=== PATIENT | female | born 1950 | race Caucasian/White ===

== ENCOUNTER 2016-09-17 19:34 | Emergency (ER) | payer BC ==
--- NOTE | ~2016-09-17 | ER ---
PATIENT'S NAME: VALERIA GOETZ [facility] AGE: 66 Y [address] ROOM: [place] [id number] LOCATION: [facility] ADMIT DATE: 09/17/2016 ER/Outpatient Report DISCHARGE DATE: 09/17/2016 FAMILY PHYSICIAN: Danilo Durant MD ATTENDING PHYSICIAN: Santo Castorena TIME OF ARRIVAL: 1934 hours. TIME SEEN: 1945 hours. CHIEF COMPLAINT: This is a 66-year-old female. She is previously quite healthy. She is in with complaint of bleeding from a stab wound on her right ankle. HISTORY OF PRESENT ILLNESS: She reports that she was chopping vegetables, she knocked a knife off the counter, and it landed on her right ankle resulting in a puncture wound overlying a superficial varicose vein. She states at home she had substantial bleeding. She put the pressure dressing and presented herself here and the bleeding has resolved. PAST MEDICAL HISTORY: Significant for fibromyalgia, depression, hypercholesterolemia, and arthritis. CURRENT MEDICATIONS: Please see list. REVIEW OF SYSTEMS: Otherwise, negative. SOCIAL HISTORY: She is a nonsmoker. PHYSICAL EXAMINATION: GENERAL: Alert, pleasant, cooperative female in no acute distress. VITAL SIGNS: Stable. SKIN: Warm and dry. Color is normal. EXTREMITIES: Examination of affected extremity revealed a 0.5 cm puncture wound on the proximal dorsum of the right foot. There is no active bleeding. Distal neurovascular function is intact. Dorsalis pedis and posterior tibial pulses were easily palpable. Pressure dressing was applied. ASSESSMENT: PATIENT'S NAME: VALERIA GOETZ [facility] AGE: 66 Y [address] ROOM: [place] [address] LOCATION: [facility] ADMIT DATE: 09/17/2016 ER/Outpatient Report DISCHARGE DATE: 09/17/2016 FAMILY PHYSICIAN: Danilo Durant MD ATTENDING PHYSICIAN: Santo Castorena Puncture wound. PLAN: Follow up with her regular doctor as needed. MD BELKIS MEDINA/indianal /[id number] d: 09/18/16 0506 t: 10/02/16 1819, OUTPATIENT REPORT
== END 2016-09-17 19:54 | disposition disaster alternative care site (69) ==
LOC: GACC 19:34
DX: S91.331A Puncture wound without foreign body, right foot, initial encounter (principal); M79.7 Fibromyalgia; F32.9 Major depressive disorder, single episode, unspecified; E78.00 Pure hypercholesterolemia, unspecified; M19.90 Unspecified osteoarthritis, unspecified site; Z79.899 Other long term (current) drug therapy; Z98.890 Other specified postprocedural states; W26.0XXA Contact with knife, initial encounter; Y93.89 Activity, other specified